=== PATIENT | female | born 1990 ===

== ENCOUNTER 2016-06-04 11:35 | Emergency (ER) | payer OTHER ==
[2016-06-04 11:46] VITALS: BMI 25.3
[2016-06-04] MEDS ORDERED: Iohexol 240 (50 ml) PO ONE (12:26)
[2016-06-04] MEDS ORDERED: Sodium Chloride 0.9% 500 ML IV ONE (12:28)
--- NOTE | 2016-06-04 12:31 | ED PDOC ---
HPI: Abdomen Time Seen by Provider: 06/04/16 11:52 Chief Complaint (Nursing): Abdominal Pain History Per: Patient History/Exam Limitations: no limitations Onset/Duration Of Symptoms: Gradual (2 months), Persistent, Worse Since (2 days ago) Severity: Mild Location Of Pain/Discomfort: RUQ Quality Of Discomfort: Dull Associated Symptoms: denies: Fever, Chills, Nausea, Vomiting, Diarrhea, Back Pain, Chest Pain, Constipation, Urinary Symptoms Exacerbating Factors: None Alleviating Factors: None Last Bowel Movement: Yesterday Additional History Per: Patient Additional Complaint(s): c/o "lump" on right quad for 2 months, tender on palpation, denies n/v, was constipated, had last BM yesterday, reported 2 months ago. no trauma no n/v no prev sx Past Medical History Reviewed: Historical Data, Nursing Documentation, Vital Signs Vital Signs: Last Vital Signs Temp 98.9 F 06/04/16 16:18 Pulse 79 06/04/16 16:18 Resp 18 06/04/16 16:18 BP 107/60 06/04/16 16:18 Pulse Ox 99 06/04/16 16:18 - Medical History PMH: No Chronic Diseases Denies: Chronic Kidney Disease - Family History Family History: States: Unknown Family Hx - Living Arrangements Living Arrangements: With Family - Social History Current smoker - smoking cessation education provided: No - Immunization History Hx Tetanus Toxoid Vaccination: Yes - Home Medications Home Medications: Ambulatory Orders Medication Instructions Recorded No Known Home Med 06/04/16 - Allergies Allergies/Adverse Reactions: Allergies Allergy/AdvReac Type Severity Reaction Status Date / Time ibuprofen Allergy SWELLING Verified 06/04/16 12:06 Review of Systems ROS Statement: Except As Marked, All Systems Reviewed And Found Negative Constitutional: Negative for: Fever, Chills Cardiovascular: Negative for: Chest Pain, Palpitations Respiratory: Negative for: Cough, Shortness of Breath Gastrointestinal: Positive for: Abdominal Pain, Constipation. Negative for: Nausea, Vomiting, Diarrhea Genitourinary Female: Negative for: Dysuria, Pelvic Pain Physical Exam - Reviewed Nursing Documentation Reviewed: Yes Vital Signs Reviewed: Yes - Physical Exam Appears: Positive for: Uncomfortable Head Exam: Positive for: ATRAUMATIC, NORMAL INSPECTION, NORMOCEPHALIC Eye Exam: Positive for: Normal appearance Neck: Positive for: Normal, Painless ROM, Supple Cardiovascular/Chest: Positive for: Regular Rate, Rhythm, Chest Non Tender. Negative for: Edema Respiratory: Positive for: Normal Breath Sounds. Negative for: Decreased Breath Sounds, Accessory Muscle Use, Crackles, Rales, Rhonchi, Stridor, Wheezing Gastrointestinal/Abdominal: Positive for: Bowel Sounds, Soft, Mass (small 2 cm mass in ruq). Negative for: Tenderness, Organomegaly, Distended, Guarding, Rebound, Hernia, Asicites Back: Positive for: Normal Inspection. Negative for: L CVA Tenderness, R CVA Tenderness Extremity: Positive for: Normal ROM. Negative for: Tenderness, Pedal Edema Neurologic/Psych: Positive for: Alert, vendor representatives II-XII, Oriented, Mood/Affect (calm) . Negative for: Motor/Sensory Deficits - Laboratory Results Result Diagrams: 06/04/16 12:30 06/04/16 12:30 Urine POC: Negative Urine dip results: Negative for: Leukocyte Esterase, Blood, Nitrate, Ketones, Glucose, Bilirubin, Protein - ECG O2 Sat by Pulse Oximetry: 100 Pulse Ox Interpretation: Normal - Progress ED Course And Treament: IMPRESSION: Areas of ill-defined nodularity within the right and left rectus muscle, of uncertain significance. Discrete borders of these masses are not evident. Uncertain significance. Multiplicity of these lesions raises the possibility of metastasis. Atypical location. Recommend nonemergent surgical consultation. Involuting or ruptured left ovarian cyst. Minimal fluid in cul-de-sac. Mild left hydronephrosis and proximal hydroureter, uncertain etiology. No calculus identified. Possible left UPJ obstruction. pt states sx are on the right. all non specific advise close f/u with surgery and in the medical clinic. advise close f/u. 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 [place] [Outside] (in 3 to 4 days) Terrance Salas MD [Staff Provider] - (3 to 4 days) Disposition: Routine/Home Disposition Time: 16:07 Condition: GOOD Instructions: Abdominal Pain (ED) Print Language: SALVADOREAN
[2016-06-04] MEDS ORDERED: Iohexol 240 (50 ml) ONE (12:37)
[2016-06-04 12:46] LABS: BASO # 0.1 K/uL (0.0-0.2); BASO % 1.2 % (0.0-2.0); EOS # 0.2 K/uL (0.0-0.7); HEMATOCRIT 35.4 % (34.0-47.0); LYMPH % 42.3 % (20.0-40.0); MEAN CELL VOLUME 74.1 fl (81.0-99.0); MEAN CORPUSCULAR HGB CONC 31.1 g/dL (33.0-37.0); MEAN PLATELET VOLUME 8.1 fl (7.2-11.7); MONO % 10.1 % (0.0-10.0); NEUT # 4.2 K/uL (1.8-7.0); NEUT % 44.4 % (50.0-75.0); RED CELL DISTRIBUTION WIDTH 16.4 % (11.5-14.5); WHITE BLOOD COUNT 9.5 K/uL (4.8-10.8)
[2016-06-04 12:56] LABS: ALB/GLOB RATIO 1.2 (1.0-2.1); ALKALINE PHOSPHATASE 58 U/L (38-126); ALT/SGPT 18 U/L (9-52); AMYLASE 123 U/L (30-110); AST/SGOT 25 U/L (14-36); BILIRUBIN,TOTAL 0.3 mg/dl (0.2-1.3); BLOOD UREA NITROGEN 14 mg/dl (7-17); CALCIUM 9.3 mg/dL (8.4-10.2); CARBON DIOXIDE 23 mmol/L (22-30); CHLORIDE 106 mmol/L (98-107); GFR AFRICAN-AMERICAN > 60; GLUCOSE,RANDOM 83 mg/dL (65-105); LIPASE 139 U/L (23-300); POTASSIUM 3.8 MMOL/L (3.6-5.0); SODIUM 143 mmol/l (132-148); TOTAL PROTEIN 7.5 G/DL (6.3-8.2)
[2016-06-04] MEDS ORDERED: Iohexol 300 100 ML IJ ONE (14:42)
[2016-06-04] MEDS ORDERED: Sodium Chloride 0.9% 50 ML IV ONE (14:42)
--- NOTE | 2016-06-04 15:37 | CT ---
PROCEDURE: CT Abdomen and Pelvis with contrast HISTORY: ruq abd mass growing over 2 months COMPARISON: None. TECHNIQUE: Contrast dose: 95 cc Omnipaque 300 Radiation dose: Total exam DLP = 669.86 mGy-cm. This CT exam was performed using one or more of the following dose reduction techniques: Automated exposure control, adjustment of the mA and/or kV according to patient size, and/or use of iterative reconstruction technique. FINDINGS: LOWER THORAX: Unremarkable. LIVER: Unremarkable. No gross lesion or ductal dilatation. GALLBLADDER AND BILE DUCTS: Unremarkable. PANCREAS: Unremarkable. No gross lesion or ductal dilatation. SPLEEN: Unremarkable. ADRENALS: Unremarkable. No mass. KIDNEYS AND URETERS: Mild left hydronephrosis and proximal hydroureter. Possible UPJ obstruction. No obstruction identified. Distal ureter normal in caliber. No right hydronephrosis. No renal mass or calculus. VASCULATURE: Unremarkable. No aortic aneurysm. BOWEL: Unremarkable. No obstruction. No gross mural thickening. APPENDIX: Normal appendix. PERITONEUM: Minimal fluid in cul-de-sac. There is vague nodularity within both the right and left rectus abdominus muscle. Masslike enlargement of the right rectus muscle measures roughly 2.4 x 4.6 x 8.8 cm. Caudally, there is a 2nd area of vaguely nodular enlargement of the right rectus muscle. There are ill-defined areas of nodularity in the inferior left rectus muscle. Discrete masses are not clearly identified. 1 area of nodularity in the more inferior left rectus muscle measures up to 4.9 cm in diameter. All of these areas of ill-defined nodularity are isodense with adjacent muscle. Question is raised as to whether the patient has undergone Caesarean section with typical scar. LYMPH NODES: Unremarkable. No enlarged lymph nodes. BLADDER: Unremarkable. REPRODUCTIVE: Normal uterus. Irregularly-shaped peripherally enhancing left ovarian cysts, 2.4 cm, likely ruptured or involuting ovarian cyst. BONES: No acute fracture. OTHER FINDINGS: None. IMPRESSION: Areas of ill-defined nodularity within the right and left rectus muscle, of uncertain significance. Discrete borders of these masses are not evident. Uncertain significance. Multiplicity of these lesions raises the possibility of metastasis. Atypical location. Recommend nonemergent surgical consultation. Involuting or ruptured left ovarian cyst. Minimal fluid in cul-de-sac. Mild left hydronephrosis and proximal hydroureter, uncertain etiology. No calculus identified. Possible left UPJ obstruction.
[2016-06-04 16:19] VITALS: BP 107/60; PULSE 79; RESP 18; TEMP 98.9
[2016-06-04 18:33] VITALS: O2SAT 100
== END 2016-06-04 16:21 | disposition home or self-care (01) ==
LOC: H.ER 11:35
DX: N83.202 Unspecified ovarian cyst, left side (principal); R19.01 Right upper quadrant abdominal swelling, mass and lump

== ENCOUNTER 2016-08-23 18:21 | Emergency (ER) | payer OTHER ==
[2016-08-23 18:21] VITALS: BMI 25.3
[2016-08-23 18:40] VITALS: BP 118/68; PULSE 90; RESP 18; TEMP 99.1; O2SAT 99
--- NOTE | 2016-08-23 19:34 | ED PDOC ---
HPI: Abdomen Time Seen by Provider: 08/23/16 19:11 Chief Complaint (Nursing): Abdominal Pain Chief Complaint (Provider): Abdominal Pain History Per: Patient History/Exam Limitations: no limitations Onset/Duration Of Symptoms: Days (1) Current Symptoms Are (Timing): Still Present Quality Of Discomfort: Pressure Associated Symptoms: denies: Chest Pain Additional Complaint(s): Kirstin Irving is a 26 y/o female presenting to the ER on 08/23/2016 with abdominal pain onset yesterday. Patient describes pain as "pressure" and is worse when she takes deep breaths. She reports she was seen at [facility] last week, in which she had blood work done, and earlier today in which she was given a prescription for an MRI by Dr. Castro. Patient has not taken any medications for her pain. Denies any chest pain or shortness of breath. Patient has a known allergy to Ibuprofen. Patient's LMP was on July. Denies any similar episodes in the past. Past Medical History Reviewed: Historical Data, Nursing Documentation, Vital Signs Vital Signs: Last Vital Signs Temp 99.1 F 08/23/16 18:35 Pulse 90 08/23/16 18:35 Resp 18 08/23/16 18:35 BP 118/68 08/23/16 18:35 Pulse Ox 99 08/23/16 19:48 - Medical History PMH: No Chronic Diseases Denies: Chronic Kidney Disease - Surgical History Other surgeries: (+) left shoulder - Family History Family History: States: Unknown Family Hx - Social History Current smoker - smoking cessation education provided: No Alcohol: Occasional Drugs: Denies - Immunization History Hx Tetanus Toxoid Vaccination: Yes - Home Medications Home Medications: Ambulatory Orders Medication Instructions Recorded Famotidine [Pepcid] 20 mg PO BID #28 tab 08/23/16 - Allergies Allergies/Adverse Reactions: Allergies Allergy/AdvReac Type Severity Reaction Status Date / Time ibuprofen Allergy SWELLING Verified 06/04/16 12:06 Review of Systems ROS Statement: Except As Marked, All Systems Reviewed And Found Negative Cardiovascular: Negative for: Chest Pain Respiratory: Negative for: Shortness of Breath Gastrointestinal: Positive for: Abdominal Pain Physical Exam - Reviewed Nursing Documentation Reviewed: Yes Vital Signs Reviewed: Yes - Physical Exam Appears: Positive for: Non-toxic, No Acute Distress Head Exam: Positive for: ATRAUMATIC, NORMOCEPHALIC Skin: Positive for: Normal Color. Negative for: Rash Eye Exam: Positive for: Normal appearance, EOMI, PERRL Neck: Positive for: Normal, Painless ROM, Supple Cardiovascular/Chest: Positive for: Regular Rate, Rhythm. Negative for: Murmur Respiratory: Positive for: Normal Breath Sounds. Negative for: Wheezing, Respiratory Distress Gastrointestinal/Abdominal: Positive for: Normal Exam, Bowel Sounds (present in all four quadrants ), Soft, Tenderness ((+) epigastric and mild RLQ ). Negative for: Distended, Guarding, Rebound Back: Positive for: Normal Inspection. Negative for: L CVA Tenderness, R CVA Tenderness Neurologic/Psych: Positive for: Alert, Oriented. Negative for: Motor/Sensory Deficits - ECG O2 Sat by Pulse Oximetry: 99 Medical Decision Making Medical Decision Makin:11 Initial Impression- 26 y/o female with abdominal pain; r/o gastritis Documented by Kaleigh Ambriz, acting as a scribe for Eliza Bundy MD. All medical record entries made by the Scribe were at my direction and personally dictated by me. I have reviewed the chart and agree that the record accurately reflects my personal performance of the history, physical exam, medical decision making, and the department course for this patient. I have also personally directed, reviewed, and agree with the discharge instructions and disposition. Disposition - Clinical Impression Clinical Impression: Gastritis - Patient ED Disposition Is Patient to be Admitted: No Doctor Will See Patient In The: Office Counseled Patient/Family Regarding: Diagnosis, Need For Followup, Rx Given - Disposition Referrals: Jude Perdue MD [Staff Provider] - Henry Gibbons MD [Staff Provider] - Disposition: Routine/Home Disposition Time: 20:18 Condition: STABLE Prescriptions: Famotidine [Pepcid] 20 mg PO BID #28 tab Instructions: Gastritis (ED) Forms: [employer] (Austrian) - POA Present On Arrival: None
== END 2016-08-23 20:26 | disposition home or self-care (01) ==
LOC: H.ER 18:21
DX: K29.70 Gastritis, unspecified, without bleeding (principal)